=== PATIENT | female | born 1930 | race Caucasian/White ===

== ENCOUNTER → 2017-03-20 | Outpatient (CLI) | payer MEDICARE, OTHER ==
[~2017-03-20] MED LIST: DENOSUMAB 60 MG/ML 1 ML SYRINGE SQ ONE
[2017-03-20 13:53] VITALS: BP 149/73; PULSE 68; RESP 20; TEMP 97.1
== END ==
LOC: PROCWHC3 13:11
PROVIDERS: ATTEND Family Medicine
DX: M81.0 Age-related osteoporosis without current pathological fracture (principal)
CPT/HCPCS: 96372; J0897

== ENCOUNTER → 2017-03-30 | Outpatient (CLI) | payer MEDICARE, OTHER ==
--- NOTE | 2017-04-02 08:08 | MM ---
Reason for exam: screening (asymptomatic). Last mammogram was performed 1 year ago. History: Patient is postmenopausal and has history of endometrial cancer at age 71. Family history of breast cancer in maternal aunt at age 70. Benign stereotactic core biopsy of the left breast, March 31, 2005. 2 excisional biopsies of the left breast. 4 excisional biopsies of the right breast. Physical Findings: A clinical breast exam by your physician is recommended on an annual basis and results should be correlated with mammographic findings. MG 3D Screening Mammo W/Cad Bilateral CC and MLO view(s) were taken. Prior study comparison: March 29, 2016, bilateral MG 3d screening mammo w/cad. March 30, 2015, left breast MG work up mamm w CAD LT. There are scattered fibroglandular densities. Finding: There are typically benign calcifications. Previous mammotome biopsy in the left breast. No significant changes in finding since March 29, 2016 and March 30, 2015. ASSESSMENT: Benign, BI-RAD 2 RECOMMENDATION: Routine screening mammogram of both breasts in 1 year.
== END | disposition home or self-care (01) ==
LOC: RADMAMWWP 11:28
PROVIDERS: ATTEND Obstetrics & Gynecology
DX: Z12.31 Encounter for screening mammogram for malignant neoplasm of breast (principal)
CPT/HCPCS: 77063; G0202

== ENCOUNTER → 2017-08-01 | Outpatient (CLI) | payer MEDICARE, OTHER ==
--- NOTE | 2017-08-01 16:10 | US ---
EXAMINATION TYPE: US pelvic complete DATE OF EXAM: 08/01/2017 COMPARISON: NONE CLINICAL HISTORY: 86-year-old female R10.2 Pelvic Pain. Elderly pt that states LLQ pain x 6 weeks, hy sterectomy 15 yrs ago due to uterine CA TECHNIQUE: Transabdominal (TA), pt stated her bladder felt very full and opted out of TV at this papito e FINDINGS: Uterus: Surgically absent Unable to visualize either ovary. No evident adnexal abnormality or cul-de-sac free fluid. IMPRESSION: Status post hysterectomy. Neither ovary could be visualized. No pelvic free fluid or evident adnexal abnormality.
== END | disposition home or self-care (01) ==
LOC: RADUSWWP 15:14
PROVIDERS: ATTEND Family Medicine
DX: R10.2 Pelvic and perineal pain (principal); Z90.710 Acquired absence of both cervix and uterus
CPT/HCPCS: 76857

== ENCOUNTER → 2017-08-28 | Outpatient (CLI) | payer MEDICARE, OTHER ==
--- NOTE | 2017-08-29 07:10 | US ---
EXAMINATION TYPE: US kidneys/renal and bladder DATE OF EXAM: 08/28/2017 COMPARISON: 03/17/2014 CLINICAL HISTORY: R10.84 GENERALIZED ABD PAIN. EXAM MEASUREMENTS: Right Kidney: 9.6 x 4.1 x 4.6 cm Left Kidney: 9.5 x 4.6 x 4.7 cm Right Kidney: cortical thinning Left Kidney:cortical thinning Bladder: located very low in the pelvis very limited visualization There is no evidence for hydronephrosis at this point in time. No nephrolithiasis is seen. No fátima s are identified. IMPRESSION: Mild bilateral cortical renal atrophy, as seen on the prior exam of 2013, no evidence of hydronephros is or nephrolithiasis.
== END | disposition home or self-care (01) ==
LOC: RADUSWWP 15:27
PROVIDERS: ATTEND Urology
DX: N26.1 Atrophy of kidney (terminal) (principal); R10.84 Generalized abdominal pain
CPT/HCPCS: 76770

== ENCOUNTER → 2018-02-21 | Outpatient (CLI) | payer MEDICARE, OTHER ==
[2018-02-21 09:06] VITALS: BP 148/70; PULSE 70; RESP 18; TEMP 97.8
== END | disposition home or self-care (01) ==
LOC: PROCWHC3 08:48
PROVIDERS: ATTEND Family Medicine
DX: M81.0 Age-related osteoporosis without current pathological fracture (principal)
CPT/HCPCS: 96372; J0897

== ENCOUNTER 2018-03-26 19:19 | Inpatient (IN) | payer MEDICARE, OTHER ==
[2018-03-26] MEDS ORDERED: SODIUM CHLORIDE 0.9% 1,000 ML IV STA (19:39)
--- NOTE | 2018-03-26 19:42 | ED ---
General Adult HPI - General Chief complaint: Weakness Stated complaint: abnormal heart rate Time Seen by Provider: 03/26/18 19:22 Source: patient, EMS, RN notes reviewed, old records reviewed Mode of arrival: EMS Limitations: no limitations - History of Present Illness Initial comments: This is an 79-year-old female the ER for evaluation of abnormal outpatient testing. Patient was seen by family doctor and sent to ER for evaluation. A she does have significant medical history of high blood pressure. She is presenting medical medications. Patient coming in the ER today for evaluation of not feeling well feeling well times one week. She was decreased appetite positive nausea no vomiting no diarrhea. No fevers or cough or congestion. Currently no pain. Patient was found to have abnormal EKG an outpatient basis and sent to ER for evaluation - Related Data Home Medications Medication Instructions Recorded Confirmed Ascorbic Acid [Vitamin C] 500 mg PO DAILY 03/20/17 03/26/18 Aspirin [Adult Low Dose Aspirin EC] 81 mg PO DAILY 03/20/17 03/26/18 Astelin 1 spray EA NOSTRIL DAILY PRN 03/20/17 03/26/18 Calcium Carbonate [Calcium] 600 mg PO DAILY 03/20/17 03/26/18 Celecoxib [CeleBREX] 200 mg PO DAILY 03/20/17 03/26/18 Diphenox-Atrop 2.5-0.025 mg 1 tab PO DAILY PRN 03/20/17 03/26/18 [Lomotil] Fluticasone Nasal [place] [Flonase 1 spray EA NOSTRIL DAILY 03/20/17 03/26/18 Nasal [place]] Hydrochlorothiazide [Hydrodiuril] 12.5 mg PO DAILY 03/20/17 03/26/18 Multivit-Min/FA/Lycopen/Lutein 1 tab PO DAILY 03/20/17 03/26/18 [Centrum Silver Tablet] RX: Ranitidine HCl 300 mg PO DAILY 03/20/17 03/26/18 Valsartan [Diovan] 320 mg PO DAILY 03/20/17 03/26/18 Rosuvastatin Calcium [Crestor] 5 mg PO DAILY 02/21/18 03/26/18 Cholecalciferol [Vitamin D3] 2,000 unit PO DAILY 03/26/18 03/26/18 Denosumab [Prolia] 60 mg SQ Q180D 03/26/18 03/26/18 Diclofenac Sodium Gel [Voltaren 2 gm TOPICAL BID PRN 03/26/18 03/26/18 Gel] HYDROcodone/APAP 10-325MG [[place] 1 tab PO TID PRN 03/26/18 03/26/18 10-325] Nystatin [Nystop] 1 applic TOPICAL BID 03/26/18 03/26/18 Nystatin/Triamcin 1 applicate TOPICAL BID 03/26/18 03/26/18 [Nystatin-Triamcinolone Cream] RX: Vitamin B Complex 1 cap PO DAILY 03/26/18 03/26/18 Triamcinolone Acetonide [Triderm] 1 applic TOPICAL BID PRN 03/26/18 03/26/18 Allergies Allergy/AdvReac Type Severity Reaction Status Date / Time Penicillins Allergy Rash/Hives Verified 03/26/18 19:40 lisinopril AdvReac Diarrhea Verified 03/26/18 19:41 bandaids Allergy Swelling Uncoded 03/26/18 19:29 Review of Systems ROS Statement: Those systems with pertinent positive or pertinent negative responses have been documented in the HPI. ROS Other: All systems not noted in ROS Statement are negative. Past Medical History Past Medical History: Heart Failure, GERD/Reflux, Hyperlipidemia, Hypertension Additional Past Medical History / Comment(s): anemia History of Any Multi-Drug Resistant Organisms: None Reported Past Surgical History: Ear Surgery, Hysterectomy, Joint Replacement, Tonsillectomy Additional Past Surgical History / Comment(s): Right knee replacement, cataract surgery, Past Psychological History: No Psychological Hx Reported Smoking Status: Never smoker Past Alcohol Use History: None Reported Past Drug Use History: None Reported General Exam Limitations: no limitations General appearance: alert, in no apparent distress Head exam: Present: atraumatic, normocephalic, normal inspection Eye exam: Present: normal appearance, PERRL, EOMI. Absent: scleral icterus, conjunctival injection, periorbital swelling ENT exam: Present: normal exam, mucous membranes moist Neck exam: Present: normal inspection. Absent: tenderness, meningismus, lymphadenopathy Respiratory exam: Present: normal lung sounds bilaterally. Absent: respiratory distress, wheezes, rales, rhonchi, stridor Cardiovascular Exam: Present: bradycardia, normal heart sounds. Absent: systolic murmur, diastolic murmur, rubs, gallop, clicks GI/Abdominal exam: Present: soft, normal bowel sounds. Absent: distended, tenderness, guarding, rebound, rigid Extremities exam: Present: normal inspection, full ROM, normal capillary refill. Absent: tenderness, pedal edema, joint swelling, calf tenderness Back exam: Present: normal inspection Neurological exam: Present: alert, oriented X3, CN II-XII intact Psychiatric exam: Present: normal affect, normal mood Skin exam: Present: warm, dry, intact, normal color. Absent: rash Course Vital Signs 03/26/18 03/26/18 03/26/18 19:22 19:41 20:08 Temperature 97.1 F L Pulse Rate 35 L 33 L Respiratory 18 18 Rate Blood Pressure 177/92 228/90 O2 Sat by Pulse 97 98 Oximetry 03/26/18 20:40 Temperature Pulse Rate 32 L Respiratory 18 Rate Blood Pressure 216/78 O2 Sat by Pulse 98 Oximetry - Reevaluation(s) Reevaluation #1: 03/26/18 21:20 Patient is no pain no shortness of breath not syncopal Reevaluation #2: 03/26/18 21:21 Medical record is reviewed, did speak with cardiology regarding patient's EKG findings EKG Findings - EKG Comments: EKG Findings:: EKG shows sinus bradycardia at 35, MN 180, QRS 120, QTC 377 Medical Decision Making - Medical Decision Making 87 female the ER for evaluation of weakness 1 week. Bradycardia profound, multiple x-ray abnormalities and dehydration, patient be admitted for cardiac evaluation and treatment, continue telemetry and blood pressure control - Lab Data Result diagrams: 03/26/18 19:36 03/26/18 19:36 Lab Results 03/26/18 03/26/18 03/26/18 Range/Units 19:36 19:36 19:36 WBC 7.1 (3.8-10.6) k/uL RBC 3.74 L (3.80-5.40) m/uL Hgb 12.3 (11.4-16.0) gm/dL Hct 37.5 (34.0-46.0) % MCV 100.2 H (80.0-100.0) fL MCH 32.8 (25.0-35.0) pg MCHC 32.7 (31.0-37.0) g/dL RDW 12.1 (11.5-15.5) % Plt Count 234 (150-450) k/uL Neutrophils % 61 % Lymphocytes % 27 % Monocytes % 6 % Eosinophils % 4 % Basophils % 0 % Neutrophils # 4.3 (1.3-7.7) k/uL Lymphocytes # 1.9 (1.0-4.8) k/uL Monocytes # 0.4 (0-1.0) k/uL Eosinophils # 0.3 (0-0.7) k/uL Basophils # 0.0 (0-0.2) k/uL PT (9.0-12.0) sec INR (<1.2) APTT (22.0-30.0) sec Sodium 143 (137-145) mmol/L Potassium 5.9 H (3.5-5.1) mmol/L Chloride 111 H (98-107) mmol/L Carbon Dioxide 19 L (22-30) mmol/L Anion Gap 13 mmol/L BUN 59 H (7-17) mg/dL Creatinine 1.20 H (0.52-1.04) mg/dL Est GFR (CKD-EPI)AfAm 47 (>60 ml/min/1.73 sqM) Est GFR (CKD-EPI)NonAf 41 (>60 ml/min/1.73 sqM) Glucose 111 H (74-99) mg/dL Plasma Lactic Acid Bubba (0.7-2.0) mmol/L Calcium 9.4 (8.4-10.2) mg/dL Phosphorus 4.0 (2.5-4.5) mg/dL Magnesium 2.4 H (1.6-2.3) mg/dL Total Bilirubin 0.3 (0.2-1.3) mg/dL AST 29 (14-36) U/L ALT 35 (9-52) U/L Alkaline Phosphatase 50 (38-126) U/L Total Creatine Kinase 29 L (30-135) U/L CK-MB (CK-2) 0.8 (0.0-2.4) ng/mL CK-MB (CK-2) Rel Index 2.8 Troponin I 0.039 H* (0.000-0.034) ng/mL Total Protein 6.3 (6.3-8.2) g/dL Albumin 4.0 (3.5-5.0) g/dL TSH 9.280 H (0.465-4.680) mIU/L Urine Color Urine Appearance (Clear) Urine pH (5.0-8.0) Ur Specific [place] (1.001-1.035) Urine Protein (Negative) Urine Glucose (UA) (Negative) Urine Ketones (Negative) Urine Blood (Negative) Urine Nitrite (Negative) Urine Bilirubin (Negative) Urine Urobilinogen (<2.0) mg/dL Ur Leukocyte Esterase (Negative) Urine RBC (0-5) /hpf Urine WBC (0-5) /hpf Urine WBC Clumps (None) /hpf Ur Squamous Epith Cells (0-4) /hpf Hyaline Casts (0-2) /lpf 03/26/18 03/26/18 03/26/18 Range/Units 19:36 19:36 19:51 WBC (3.8-10.6) k/uL RBC (3.80-5.40) m/uL Hgb (11.4-16.0) gm/dL Hct (34.0-46.0) % MCV (80.0-100.0) fL MCH (25.0-35.0) pg MCHC (31.0-37.0) g/dL RDW (11.5-15.5) % Plt Count (150-450) k/uL Neutrophils % % Lymphocytes % % Monocytes % % Eosinophils % % Basophils % % Neutrophils # (1.3-7.7) k/uL Lymphocytes # (1.0-4.8) k/uL Monocytes # (0-1.0) k/uL Eosinophils # (0-0.7) k/uL Basophils # (0-0.2) k/uL PT 9.4 (9.0-12.0) sec INR 0.9 (<1.2) APTT 22.8 (22.0-30.0) sec Sodium (137-145) mmol/L Potassium (3.5-5.1) mmol/L Chloride (98-107) mmol/L Carbon Dioxide (22-30) mmol/L Anion Gap mmol/L BUN (7-17) mg/dL Creatinine (0.52-1.04) mg/dL Est GFR (CKD-EPI)AfAm (>60 ml/min/1.73 sqM) Est GFR (CKD-EPI)NonAf (>60 ml/min/1.73 sqM) Glucose (74-99) mg/dL Plasma Lactic Acid Bubba 0.7 (0.7-2.0) mmol/L Calcium (8.4-10.2) mg/dL Phosphorus (2.5-4.5) mg/dL Magnesium (1.6-2.3) mg/dL Total Bilirubin (0.2-1.3) mg/dL AST (14-36) U/L ALT (9-52) U/L Alkaline Phosphatase (38-126) U/L Total Creatine Kinase (30-135) U/L CK-MB (CK-2) (0.0-2.4) ng/mL CK-MB (CK-2) Rel Index Troponin I (0.000-0.034) ng/mL Total Protein (6.3-8.2) g/dL Albumin (3.5-5.0) g/dL TSH (0.465-4.680) mIU/L Urine Color Light Yellow Urine Appearance Cloudy H (Clear) Urine pH 5.0 (5.0-8.0) Ur Specific [place] 1.008 (1.001-1.035) Urine Protein Trace H (Negative) Urine Glucose (UA) Negative (Negative) Urine Ketones Negative (Negative) Urine Blood Trace H (Negative) Urine Nitrite Negative (Negative) Urine Bilirubin Negative (Negative) Urine Urobilinogen <2.0 (<2.0) mg/dL Ur Leukocyte Esterase Moderate H (Negative) Urine RBC 2 (0-5) /hpf Urine WBC 34 H (0-5) /hpf Urine WBC Clumps Few H (None) /hpf Ur Squamous Epith Cells <1 (0-4) /hpf Hyaline Casts 1 (0-2) /lpf Critical Care Time Critical Care Time: Yes Total Critical Care Time: 31 Disposition Clinical Impression: Bradycardia, Hypertensive urgency, Dehydration, Acute renal failure Disposition: ADMITTED IP TO THIS HOSP Condition: Serious Is patient prescribed a controlled substance at d/c from ED?: No Referrals: Andrzej Hutson MD [Primary Care Provider] - 1-2 days
[2018-03-26 19:51] LABS: Basophils % (A) 0 %; Eosinophils # (A) 0.3 k/uL (0-0.7); Eosinophils % (A) 4 %; HCT 37.5 % (34.0-46.0); HGB 12.3 gm/dL (11.4-16.0); Lymphocytes # (A) 1.9 k/uL (1.0-4.8); Lymphocytes % (A) 27 %; MCH 32.8 pg (25.0-35.0); MCHC 32.7 g/dL (31.0-37.0); MCV 100.2 fL (80.0-100.0); Mean Platelet Volume 7.3; Monocytes # (A) 0.4 k/uL (0-1.0); Monocytes % (A) 6 %; Neutrophils # (A) 4.3 k/uL (1.3-7.7); Neutrophils % (A) 61 %; Platelet Count 234 k/uL (150-450); RBC 3.74 m/uL (3.80-5.40); RDW 12.1 % (11.5-15.5); WBC 7.1 k/uL (3.8-10.6)
[2018-03-26 20:02] LABS: Appearance,Urine Cloudy (Clear); Bilirubin,Urine Negative (Negative); Blood,Urine Trace (Negative); Color,Urine Light Yellow; Glucose,Urine (UA) Negative (Negative); Hyaline Casts,Urine 1 /lpf (0-2); Ketones,Urine Negative (Negative); Leukocyte Esterase,Urine Moderate (Negative); Nitrite,Urine Negative (Negative); Protein,Urine Trace (Negative); RBC,Urine 2 /hpf (0-5); Specific Gravity,Urine 1.008 (1.001-1.035); Squamous Epithelial Cell,Urine <1 /hpf (0-4); Urobilinogen,Urine <2.0 mg/dL (<2.0); WBC,Urine 34 /hpf (0-5)
[2018-03-26 20:12] LABS: Calcium 9.4 mg/dL (8.4-10.2); Magnesium 2.4 mg/dL (1.6-2.3); Potassium 5.9 mmol/L (3.5-5.1); Total Bilirubin 0.3 mg/dL (0.2-1.3); Total Protein 6.3 g/dL (6.3-8.2)
[2018-03-26 20:13] LABS: INR 0.9 (<1.2); Prothrombin Time 9.4 sec (9.0-12.0)
[2018-03-26 20:14] LABS: Partial Thromboplastin Time 22.8 sec (22.0-30.0)
[2018-03-26 20:27] LABS: Creatine Kinase MB 0.8 ng/mL (0.0-2.4)
[2018-03-26 20:31] LABS: Troponin I 0.039 ng/mL (0.000-0.034)
[2018-03-26] MEDS ORDERED: hydrALAZINE HCL 20 MG/ML 1 ML VIAL IVP STA ×2 (20:31→21:59)
[2018-03-26] MEDS ORDERED: SODIUM CHLORIDE 0.9% 500 ML IV STA (20:35)
[2018-03-26] MEDS ORDERED: cefTRIAXone IN SWFI 1,000 MG/10 ML SYRINGE IVP STA (20:38)
[2018-03-26] MEDS ORDERED: NITROGLYCERIN SL TABS 0.4 MG TAB SUBLINGUAL PRN (21:18)
[2018-03-26] MEDS ORDERED: ASPIRIN 81 MG PO STA (21:18)
[2018-03-26 23:45] VITALS: BMI 31.7
[2018-03-27 02:14] LABS: Creatine Kinase MB 0.9 ng/mL (0.0-2.4)
[2018-03-27 02:15] LABS: Troponin I 0.092 ng/mL (0.000-0.034)
[2018-03-27] MEDS ORDERED: DICLOFENAC SODIUM GEL 100 GM TUBE TOPICAL PRN (05:45)
[2018-03-27] MEDS ORDERED: DENOSUMAB 60 MG/ML 1 ML SYRINGE SQ SCH (05:45)
[2018-03-27] MEDS ORDERED: HYDROcodone/APAP 10-325MG 1 EACH TAB PO PRN (05:45)
[2018-03-27] MEDS ORDERED: DIPHENOX-ATROP 2.5-0.025 MG 1 EACH TAB PO PRN (05:45)
[2018-03-27] MEDS ORDERED: TRIAMCINOLONE 0.1% CREAM 80 GM TUBE TOPICAL PRN (05:45)
[2018-03-27] MEDS: LEVOTHYROXINE 50 MCG TAB PO SCH (08:42)
[2018-03-27] MEDS: FAMOTIDINE 20 MG TAB PO SCH (08:43)
[2018-03-27] MEDS: ATORVASTATIN 10 MG TAB PO SCH (08:43)
[2018-03-27] MEDS: HYDROCHLOROTHIAZIDE 12.5 MG CAP PO SCH (08:44)
--- NOTE | 2018-03-27 08:46 | XR ---
EXAMINATION TYPE: XR chest 1V portable DATE OF EXAM: 03/27/2018 COMPARISON: NONE HISTORY: Preoperative evaluation TECHNIQUE: Single frontal view of the chest is obtained. FINDINGS: Cardiomediastinal silhouette is upper limits of normal. Diffuse interstitial prominence ma y be chronic. No focal consolidation is seen. Probable linear parenchymal scarring is seen within the right midlung. There is slight right hemidiaphragm elevation and right hemithorax volume loss. There is generalized demineralization of the osseous structures and mild glenohumeral arthropathy on the r ight, moderate on the left. IMPRESSION: Diffuse interstitial prominence could be chronic, however no prior examinations are seen . Less likely this could relate to mild interstitial edema or atypical pneumonitis.
[2018-03-27 08:56] LABS: Creatine Kinase MB 0.8 ng/mL (0.0-2.4)
[2018-03-27 08:58] LABS: Cholesterol 108 mg/dL (<200); HDL Cholesterol 41 mg/dL (40-60); LDL Cholesterol,Calculated 49 mg/dL (0-99); Triglycerides 88 mg/dL (<150)
[2018-03-27] MEDS ORDERED: ASPIRIN 325 MG TAB PO SCH (09:00)
[2018-03-27] MEDS ORDERED: VALSARTAN 160 MG TAB PO SCH (09:00)
[2018-03-27] MEDS ORDERED: hydrALAZINE HCL 25 MG TAB PO SCH (09:00)
[2018-03-27] MEDS ORDERED: LEVOTHYROXINE 50 MCG TAB PO SCH (09:00)
[2018-03-27] MEDS ORDERED: CALCIUM CARBONATE 500 MG CHEWABLE PO SCH (09:00)
[2018-03-27] MEDS ORDERED: CHOLECALCIFEROL 1,000 UNIT TAB PO SCH (09:00)
[2018-03-27 09:01] LABS: Troponin I 0.103 ng/mL (0.000-0.034)
[2018-03-27] MEDS: AZELASTINE 137MCG/SPRAY EA NOSTRIL PRN (09:01)
[2018-03-27] MEDS: FLUTICASONE 50MCG/SPRAY NASAL 16GM EA NOSTRIL SCH (09:01)
[2018-03-27] MEDS: hydrALAZINE HCL 25 MG TAB PO SCH ×3 (09:58→20:38)
[2018-03-27] MEDS: ASPIRIN 81 MG PO SCH (09:59)
[2018-03-27] MEDS: NYSTATIN 100,000UNIT/GM CREAM 30 GM TUBE TOPICAL SCH ×2 (09:59→20:45)
[2018-03-27] MEDS: NYSTATIN 100,000 UNIT/GM POWD 15 GM TOPICAL SCH ×2 (09:59→20:45)
[2018-03-27] MEDS ORDERED: FUROSEMIDE 10 MG/ML 2 ML VIAL IV STA (10:22)
[2018-03-27] MEDS ORDERED: FUROSEMIDE 10 MG/ML 4 ML VIAL ONE (10:24)
[2018-03-27] MEDS: ONDANSETRON 4 MG/2 ML VIAL IVP PRN ×3 (10:34→23:25)
[2018-03-27 11:32] LABS: Calcium 8.4 mg/dL (8.4-10.2); Potassium 5.7 mmol/L (3.5-5.1)
[2018-03-27] MEDS: VIT A,C & E-LUTEIN-MINERALS 1 EACH TAB PO SCH (11:39)
[2018-03-27] MEDS: B COMPLEX-VIT C-VIT E-ZINC 1 EACH TAB PO SCH (11:39)
[2018-03-27] MEDS: ASCORBIC ACID 500 MG TAB PO SCH (11:39)
[2018-03-27] MEDS ORDERED: SODIUM POLYSTYRENE SULFONATE 15 GM/60 ML BOTTLE PO STA (13:17)
--- NOTE | 2018-03-27 14:33 | ECHOF ---
Referral Reason:second degree heart block MEASUREMENTS -------- HEIGHT: 152.4 cm WEIGHT: 75.7 kg BP: 133/56 IVSd: 1.3 cm (0.6 - 1.1) LVIDd: 4.3 cm (3.9 - 5.3) LVPWd: 1.9 cm (0.6 - 1.1) IVSs: 1.7 cm LVIDs: 3.3 cm LVPWs: 1.5 cm LAESV Index (A-L): 46.40 ml/m Ao Diam: 2.5 cm (2.0 - 3.7) LA Diam: 4.5 cm (2.7 - 3.8) MV EXCURSION: 14.577 mm (> 18.000) MV EF SLOPE: 64 mm/s (70 - 150) EPSS: 0.2 cm MV E Martell: 1.68 m/s MV DecT: 260 ms MV A Martell: 1.74 m/s MV E/A Ratio: 0.97 AR PHT: 628 ms RAP: 5.00 mmHg RVSP: 56.28 mmHg FINDINGS -------- Resting bradycardia (HR<60bpm). This was a technically adequate study. The left ventricular size is normal. There is mild concentric left ventricular hypertrophy. Overa ll left ventricular systolic function is normal with, an EF between 55 - 60 %. The right ventricle is normal in size. LA is severely dilated >40 ml/m2 The right atrial size is normal. There is mild aortic valve sclerosis. There is mild aortic regurgitation. Mild mitral annular calcification present. Mild mitral regurgitation is present. The peak and me an MV gradients are 16.72mmHg 5.32mmHg as measured by doppler. Mild mitral stenosis. Mild tricuspid regurgitation present. There is moderate pulmonary hypertension. The right ventric ular systolic pressure, as measured by Doppler, is 56.28mmHg. The pulmonic valve was not well visualized. There is no pulmonic regurgitation present. The aortic root size is normal. There is no pericardial effusion. CONCLUSIONS -------- 1. Resting bradycardia (HR<60bpm). 2. This was a technically adequate study. 3. The left ventricular size is normal. 4. There is mild concentric left ventricular hypertrophy. 5. Overall left ventricular systolic function is normal with, an EF between 55 - 60 %. 6. LA is severely dilated >40 ml/m2 7. There is mild aortic valve sclerosis. 8. There is mild aortic regurgitation. 9. Mild mitral annular calcification present. 10. Mild mitral regurgitation is present. 11. The peak and mean MV gradients are 16.72mmHg 5.32mmHg as measured by doppler. 12. Mild mitral stenosis. 13. Mild tricuspid regurgitation present. 14. There is moderate pulmonary hypertension. 15. There is no pulmonic regurgitation present. 16. The aortic root size is normal. 17. There is no pericardial effusion. NUCLEAR MEDICAL TECHNOLOGIST: Brittny Sales RDCS
[2018-03-27] MEDS ORDERED: SODIUM BICARB 8.4% 50 ML SYR (1 MEQ/ML) IV STA (14:56)
[2018-03-27] MEDS ORDERED: DEXTROSE 50%-WATER 50 ML SYRINGE IVP STA (15:00)
[2018-03-27] MEDS ORDERED: ACETAMINOPHEN TAB 325 MG TAB PO PRN (15:01)
[2018-03-27] MEDS ORDERED: LACTULOSE 20 GM/30 ML CUP PO PRN (15:01)
[2018-03-27] MEDS ORDERED: MAGNESIUM HYDROXIDE 2,400 MG/10 ML CUP PO PRN (15:01)
[2018-03-27] MEDS ORDERED: SODIUM BICARB 8.4% 50 ML VIAL (1 MEQ/ML) IV ONE (15:01)
[2018-03-27] MEDS ORDERED: ALPRAZolam 0.25 MG TAB PO PRN (15:01)
[2018-03-27] MEDS ORDERED: INSULIN REGULAR 100 UNIT/ML VIAL IV STA (15:04)
[2018-03-27] MEDS: SODIUM CHLORIDE 0.9% 1,000 ML IV SCH (15:06)
[2018-03-27] MEDS: SODIUM BICARBONATE TAB 650 MG TAB PO SCH ×2 (15:43→20:38)
[2018-03-27] MEDS ORDERED: CALCIUM CHLORIDE 1,000 MG in SODIUM CHLORIDE 0.9% 100 ML IVPB ONE (16:00)
--- NOTE | 2018-03-27 17:07 | HP ---
HISTORY AND PHYSICAL DATE OF ADMISSION: 03/26/2018 DATE OF SERVICE: 03/27/2018 PRESENTING COMPLAINT: Tired, rundown. HISTORY OF PRESENTING COMPLAINT: This is an 87-year-old patient of Dr. Hutson whose chronic stable medical conditions include GERD, hypertension, hyperlipidemia. The patient is rather active; in fact, played some golf over 10 days ago. The patient has been feeling totally rundown for about a week, what she describes as feeling "blah." She had some nausea. No fever or chills. Decreased appetite. No change in her bowel habits. Some shortness of breath. She went to see her family doctor and then came down here next feeling totally exhausted and rundown. She denies any other previous cardiac history. Patient's daughter is present with her. REVIEW OF SYSTEMS: CONSTITUTIONAL: Weak, tired, decreased appetite. HEENT: None. RESPIRATORY: Short of breath. CARDIOVASCULAR: No chest pain. GASTROINTESTINAL: Heartburn. GENITOURINARY: Urinary incontinence. DERMATOLOGICAL: None. HEMATOLOGICAL: None. LYMPHATICS: None. PSYCHIATRY: None. NEUROLOGICAL: Sleeps poorly. MUSCULOSKELETAL: Arthritic pain in the many joints. PAST MEDICAL HISTORY: 1. GERD. 2. Hyperlipidemia. 3. Hypertension. PAST SURGICAL HISTORY: 1. Ear surgery. 2. Hysterectomy. 3. Tonsillectomy. 4. Right knee replacement. 5. Cataract surgery. SOCIAL HISTORY: Does not smoke or drink alcohol. . FAMILY HISTORY: Reviewed; noncontributory to presentation. HOME MEDICATIONS: 1. Diovan 320 mg p.o. daily. 2. Triderm 1 application topically b.i.d. p.r.n. 3. Aspirin 81 mg p.o. daily. 4. Vitamin B complex 1 capsule p.o. daily. 5. [place] 10 one tablet p.o. t.i.d. p.r.n. 6. Lomotil 2.5 one tablet p.o. daily p.r.n. 7. Motrin Gel 2 grams topically b.i.d. p.r.n. 8. Vitamin D3 2000 units p.o. daily. 9. Astelin 1 spray each nostril daily p.r.n. 10.Crestor 5 mg p.o. daily. 11.Zantac 300 mg p.o. daily. 12.Prolia 60 mg every 180 days. 13.Vitamin C 500 mg p.o. daily. 14.Nystatin-triamcinolone 1 application topically b.i.d. 15.Nystatin 1 application topically b.i.d. 16.Hydrochlorothiazide 12.5 p.o. daily. 17.Flonase 1 spray each nostril daily. 18.Centrum 1 tablet p.o. daily. 19.Celebrex 200 mg p.o. daily. 20.Calcium 600 mg p.o. daily. ALLERGIES: 1. PENICILLIN. 2. LISINOPRIL. 3. BAND-AIDS. PHYSICAL EXAMINATION: VITAL SIGNS ON PRESENTATION: Temperature 97.1, pulse 35, respiration 18, blood pressure 177/92, pulse ox 97% on room air on presentation. GENERAL APPEARANCE: Well built; BMI 31.7. Sitting up, tired-appearing. EYES: Pupils equal. Conjunctivae normal. HEENT: External appearance of nose and ears normal. Oral cavity normal. NECK: JVD raised. Mass not palpable. RESPIRATORY: Effort increased. LUNGS: Decreased breath sounds. CARDIOVASCULAR: Heart sounds irregular. Minimal edema. ABDOMEN: Soft, nontender. Liver and spleen not palpable. LYMPHATIC: No lymph node palpable in neck or axillae. PSYCHIATRY: Alert, oriented x3. Mood and affect normal. NEUROLOGICAL: Pupils equal. Cranial nerves grossly intact. Power and sensation grossly intact. MUSCULOSKELETAL: Evidence of osteoarthritis, especially in the hands and knees. INVESTIGATIONS: White count 7.1, hemoglobin 12.3, platelets 234, potassium 5.9, bicarb 19, BUN 59, creatinine 1.20, troponin 0.039, 0.092, 0.1. TSH 9.2. UA positive for leukocyte esterase, WBC. Chest x-ray shows venous prominence. ASSESSMENT: 1. This is a patient who has been feeling weak, tired, rundown for about a week. Chest x-ray is compatible with some pulmonary edema in the setting of 2:1 heart block and bradycardia, which could be from severe hyperkalemia, and of course it could be from a conduction problem. Patient's troponins are also mildly elevated. 2. Severe hyperkalemia in the setting of renal failure, and patient is also taking Diovan. 3. Metabolic acidosis, probably from renal failure. 4. Obesity; body mass index 31.7. 5. Essential hypertension, uncontrolled. 6. Hyperlipidemia. 7. Gastroesophageal reflux disease. 8. Primary osteoarthritis in multiple joints, bilateral. 9. Chronic urinary stress incontinence. 10.Chronic insomnia, idiopathic. 11.Hypothyroidism with elevated TSH, but in acute setting it is unclear if patient is actually underreplaced. Will have to recheck the same. 12.CODE STATUS: DO NOT RESUSCITATE. PLAN: For the hyperkalemia we will stop patient's ARB. Patient will be given some insulin, dextrose, sodium bicarb and calcium chloride. Calcium gluconate is not available in the hospital. Patient will be also put on a low-potassium diet. Cardiology will be consulted. Given that patient has 2:1 block, patient may require a pacemaker. Care was discussed in detail with the patient and daughter. Questions were answered. Cardiology had given the patient some Lasix earlier. AGUSTO / TARI: [id number] /
--- NOTE | 2018-03-27 18:22 | CONS ---
CONSULTATION This is an 87-year-old elderly lady who lives part-time in [place] and summertime in [place]. She has been experiencing for the past a week or so generalized weakness, lack of energy, listlessness and nausea. She went to her doctor for outpatient testing, was seen and sent in because of a slow heart rate and a generalized feeling of weakness and listlessness. After arrival, she was found to have a heart rate in the 40s with a 2:1 block and underlying left bundle and I was asked to see her in this regard. The patient was also found to have hyperkalemia at a potassium of 5.9 initially. She appears to have some prerenal azotemia as well and may have been a bit dehydrated. Apparently in [place], she had a volume overload situation, according to the daughter. She is comfortable at the time of my evaluation, complains of some nausea. PAST MEDICAL HISTORY: Remarkable for history of congestive heart failure, diastolic probably, hyperlipidemia, hypertension, gastroesophageal reflux disease. She is status post tonsillectomy, joint replacement of the right knee arthroplasty, cataract surgery. ALLERGIES: Include LISINOPRIL and PENICILLIN. MEDICATIONS AT HOME: Include: 1. Vitamin supplements. 2. Aspirin 81 mg daily. 3. Celebrex for arthritis. 4. Flonase inhaler. 5. Hydrochlorothiazide 12.5 mg daily. 6. Ranitidine 300 mg daily. 7. Diovan 320 mg daily. 8. Crestor 5 mg daily. 9. Hydrocodone for pain and. 10.Some vitamin supplements. EKG revealed a sinus mechanism with a 2:1 block and a left bundle branch block with a rate of about 40 beats per minute. EXAMINATION: Blood pressure is 140/70, pulse rate is about 42 per minute. HEENT: Unremarkable. Fundus was not examined by me. Neck is supple. There is no JVD. I do not hear a carotid bruit. Heart reveals S1, S2 with a short systolic murmur at the base, preserved second heart sound. Lungs reveal diminished air entry. Abdomen is soft, distended, nontender. Lower extremities reveal diminished pulses. No edema. Central nervous system is grossly within normal limits. IMPRESSION: 1. 2:1 block with underlying left bundle with symptomatic bradycardia. 2. Hyperkalemia. 3. History of hypertension. 4. Hyperlipidemia. 5. History of hospitalization with diastolic heart failure apparently in [place]. RECOMMENDATION: I am recommending that we address the issue of hyperkalemia by giving her Kayexalate and also hydrate her cautiously. I am also recommending that we check thyroid function test and apparently TSH is elevated. We will start her on some Synthroid 50 mcg daily, correct the potassium, redo the EKG and if the heart rate is still low, she will need a pacemaker. I discussed with the patient and daughter the rationale for pacemaker if her heart rate remains low with a 2:1 heart block and she is asymptomatic after her potassium is corrected. Rationale, risks, benefits, options complications were explained to the patient and family. They understand all details and tomorrow I will make 1 more phone call after I check her potassium level and then make further recommendations. I discussed my thoughts in detail with the patient and family. Thank you very much for the consult. AGUSTO / TARI: [id number] /
[2018-03-27 19:01] LABS: Calcium 9.3 mg/dL (8.4-10.2); Potassium 4.9 mmol/L (3.5-5.1)
[2018-03-27] MEDS ORDERED: MELATONIN 3 MG TABLET PO PRN (21:00)
[2018-03-28] MEDS ORDERED: CLINDAMYCIN 900 MG in DEXTROSE 5% IN WATER 50 ML IVPB ONE ×2 (06:00)
[2018-03-28] MEDS ORDERED: CLINDAMYCIN 600 MG in SODIUM CHLORIDE 0.9% IRRIGATIO 250 ML IRRIGATION ONE (06:00)
[2018-03-28] MEDS: ATORVASTATIN 10 MG TAB PO SCH (06:11)
[2018-03-28] MEDS: hydrALAZINE HCL 25 MG TAB PO SCH ×3 (06:11→21:18)
[2018-03-28] MEDS: ASPIRIN 81 MG PO SCH (06:11)
[2018-03-28] MEDS: SODIUM BICARBONATE TAB 650 MG TAB PO SCH ×3 (06:11→21:18)
[2018-03-28] MEDS: LEVOTHYROXINE 50 MCG TAB PO SCH (06:11)
[2018-03-28] MEDS: FAMOTIDINE 20 MG TAB PO SCH (06:11)
[2018-03-28] MEDS: FLUTICASONE 50MCG/SPRAY NASAL 16GM EA NOSTRIL SCH (06:12)
[2018-03-28] MEDS: SODIUM CHLORIDE 0.9% 1,000 ML IV SCH ×6 (06:14→23:47)
[2018-03-28] MEDS: ONDANSETRON 4 MG/2 ML VIAL IVP PRN (06:16)
[2018-03-28 06:23] LABS: Glucose,Whole Blood 106 mg/dL (75-99)
[2018-03-28 06:41] LABS: Calcium 8.6 mg/dL (8.4-10.2); Potassium 4.9 mmol/L (3.5-5.1)
[2018-03-28 07:53] LABS: T4, Free (Free Thyroxine) 1.07 ng/dL (0.78-2.19)
[2018-03-28] MEDS: NYSTATIN 100,000 UNIT/GM POWD 15 GM TOPICAL SCH ×2 (08:50→21:18)
[2018-03-28] MEDS: NYSTATIN 100,000UNIT/GM CREAM 30 GM TUBE TOPICAL SCH ×2 (08:51→21:18)
[2018-03-28] MEDS ORDERED: diphenhydrAMINE 50 MG/ML 1 ML VIAL ONE (09:34)
[2018-03-28] MEDS ORDERED: MIDAZOLAM 2 MG/2 ML VIAL ONE (09:34)
[2018-03-28] MEDS ORDERED: IOPAMIDOL-250 50ML BTL IV ONE (09:44)
[2018-03-28] MEDS ORDERED: MIDAZOLAM 2 MG/2 ML VIAL IVP ONE (09:47)
[2018-03-28] MEDS ORDERED: LIDOCAINE 2% INJ 20 MG/ML SQ ONE (09:47)
[2018-03-28] MEDS ORDERED: amLODIPine 5 MG TAB PO STA ×2 (09:53→11:36)
[2018-03-28] MEDS ORDERED: amLODIPine 5 MG TAB PO ONE (10:05)
[2018-03-28] MEDS ORDERED: SODIUM CHLORIDE 0.9% 1,000 ML IV ONE (10:06)
[2018-03-28] MEDS: MORPHINE SULFATE 5 MG/ML SYRINGE IVP ONE ×2 (10:38→10:57)
--- NOTE | 2018-03-28 11:08 | PN ---
PROGRESS NOTE Mrs. Andrea is doing well today. She remains in 2:1 block. Potassium level is 4.9. She was advised to have a temporary and then permanent pacemaker. Risks, benefits, options, rationale explained to the patient and I also talked to her daughter at length. MMDEBORAHL / AGN: [id number] /
[2018-03-28] MEDS ORDERED: ACETAMINOPHEN TAB 325 MG TAB PO PRN ×2 (11:39→11:49)
--- NOTE | 2018-03-28 12:32 | CE ---
CARDIAC ELECTROPHYSIOLOGY REPORT DATE OF SERVICE: 03/28/2018. PROCEDURE: 1. Temporary transvenous pacemaker from the right femoral approach. 2. Dual-chamber permanent pacemaker in the left infraclavicular area. PERFORMED BY: Dr. Adwoa Broderick. Moderate conscious sedation time was 108 minutes. The patient was given a combination of Versed and morphine. CLINICAL INFORMATION: Mrs. Elisa Andrea is an 87-year-old lady who came into the hospital with weakness, fatigue and dizziness and near syncope, had a 2:1 heart block with underlying left bundle. She was slightly hyperkalemic and even after correction, she continued to have bradycardia symptomatic with 2:1 block and left bundle branch block pattern. She was advised a dual-chamber pacemaker after due discussion with the patient and daughter. PROCEDURE NOTE: 1. Under local anesthesia and strict aseptic precautions, a 6-Namibian introducer was placed in the right femoral vein. Using a 5-Namibian balloon tipped pacemaker, I advanced and positioned it under fluoroscopic guidance to the right ventricular apex. Good threshold was obtained. This was used as a backup pacemaker. Patient was kept at a backup rate of 35 and of 5.0. I then unscrubbed and rescrubbed and went in to perform the permanent pacemaker procedure. 2. Under local anesthesia and strict aseptic precautions using fluoroscopic guidance after a venogram, I gained access into the left axillary vein. A micropuncture needle technique was used. Subsequently under strict aseptic precautions and local anesthesia, a linear incision was made medial and parallel to the left deltopectoral groove of about 3-1/2 inches. A subfascial pocket was made using blunt dissection. I then under fluoroscopic guidance obtained another access point into the left axillary vein under fluoroscopic guidance and a micropuncture needle technique was used. Two wires were left in the axillary vein. A 6-Namibian introducer was placed in the lateral incision point. Under fluoroscopic guidance, a ventricular pacemaker lead was advanced and positioned and after multiple attempts. A good septal location was achieved. Good threshold and sensitivities were obtained. The lead was then secured to the underlying muscle with an 0 silk. I then advanced the atrial lead under fluoroscopic guidance and positioned it in the right atrium. Good thresholds and sensitivities were obtained. Both leads were separately secured to the underlying muscle. The pocket was irrigated with antibiotic solution. I obtained the threshold and also did 10 V pacing for both the leads. BALES and WALT projections were used to visualize the location. Excellent location and excellent thresholds were obtained. The leads were then connected to the pulse generator and the pocket was closed in 2 layers. Excellent hemostasis was achieved. Patient tolerated the procedure well without complication. 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 Location is in the left infraclavicular location. ATRIAL LEAD INFORMATION: [employer] model Tendril STS 2088 TC/52, serial #[id number]. VENTRICULAR LEAD: [employer] model Tendril STS 2088 TC/58 cm, serial #[id number]. Location is in the mid septum. Atrial threshold was 1.25 V at 0.4 milliseconds. A lead sensing was 4.3 mV. Lead impedance was 400 ohms. The ventricular threshold was 0.5 V at 0.4 mV. R-waves are more than 12.0. Lead impedance was 590 ohms. The pacemaker was set at a backup rate of 50, a high rate of 110, AV paced delay of 200 milliseconds, sensed delay of 180 milliseconds. Pacemaker was set at DDD mode. The patient tolerated procedure well without complications. She will have a chest x- ray today and this will be repeated tomorrow as well. MMODL / IJN: [id number] /
[2018-03-28] MEDS: HYDROCHLOROTHIAZIDE 12.5 MG CAP PO SCH (12:41)
[2018-03-28] MEDS: VIT A,C & E-LUTEIN-MINERALS 1 EACH TAB PO SCH (12:44)
[2018-03-28] MEDS: ASCORBIC ACID 500 MG TAB PO SCH (12:44)
[2018-03-28] MEDS: B COMPLEX-VIT C-VIT E-ZINC 1 EACH TAB PO SCH (12:44)
[2018-03-28] MEDS: AZELASTINE 137MCG/SPRAY EA NOSTRIL PRN (12:50)
--- NOTE | 2018-03-28 15:01 | XR ---
EXAMINATION TYPE: XR chest 1V portable DATE OF EXAM: 03/28/2018 HISTORY: Shortness of breath. COMPARISON: 03/27/2018 TECHNIQUE: Single view of the chest is submitted. FINDINGS: Dual-lead pacer is noted to be in place. Pulmonary venous congestion without overt failure. No evidence for pneumothorax. Demonstrated are scattered senescent parenchymal change. There is no evidence for focal infiltrate. The heart is stable. Hilar and mediastinal structures are within normal limits. Degenerative changes are seen of the dorsal spine. IMPRESSION: 1. Chronic changes without evidence for acute pulmonary disease.
[2018-03-28] MEDS: CLINDAMYCIN 600 MG in DEXTROSE 5% IN WATER 50 ML IVPB SCH ×4 (16:06→23:44)
--- NOTE | 2018-03-28 19:56 | PN ---
PROGRESS NOTE DATE OF SERVICE: 03/28/2018 PRESENTING COMPLAINT: Heart block. INTERVAL HISTORY: This patient was admitted with a multitude of problems, including second-degree heart block causing pulmonary edema, severe hyperkalemia. This morning patient did get a pacemaker. Lying in bed, tired; slightly short of breath. This was done by Dr. Adwoa Broderick. REVIEW OF SYSTEMS: Done for constitutional, cardiovascular, GI, pulmonary; relevant findings as above. CURRENT MEDICATIONS: Reviewed. They include IV clindamycin, bicarbonate, IV fluids per Dr. Adwoa Broderick. PHYSICAL EXAMINATION: Temperature 97.1, pulse 72, respiration 18, blood pressure 184/72, pulse ox 95% on 3 L. GENERAL APPEARANCE: Lying in bed, tired-appearing. EYES: Pupils equal. Conjunctivae normal. HEENT: External appearance of nose and ears normal. Oral cavity normal. NECK: JVD unable to assess. Mass not palpable. RESPIRATORY: Effort increased. LUNGS: Decreased breath sounds. CARDIOVASCULAR: Heart sounds irregular. Minimal edema. ABDOMEN: Soft, non-tender. Liver and spleen not palpable. PSYCHIATRY: Alert and oriented x3. Mood and affect normal. INVESTIGATIONS: Potassium 4.9, bicarb 21, BUN 51, creatinine 1.29. TSH 9.2. ASSESSMENT: 1. Second-degree heart block with 2:1 conduction, symptomatic. Patient is now status post permanent pacemaker. 2. Acute pulmonary edema, probably from heart block. 3. Severe hyperkalemia. Patient was on Diovan, corrected. 4. Metabolic acidosis from renal failure, improving. 5. Obesity; body mass index 31.7. 6. Essential hypertension, uncontrolled. 7. Hyperlipidemia. 8. Gastroesophageal reflux disease. 9. Primary osteoarthritis in multiple joints, bilateral. 10.Chronic urinary stress incontinence. 11.Chronic insomnia, idiopathic. 12.H thyroidism. 13.CODE STATUS: DO NOT RESUSCITATE. 14.Moderate secondary pulmonary hypertension. PLAN: Will keep the patient on sodium bicarb, add amlodipine for better blood pressure control, go from there. amlodipine will add beta aline for blood pressure control. MMODL / IJN: [id number] /
[2018-03-29] MEDS: SODIUM CHLORIDE 0.9% 1,000 ML IV SCH ×4 (06:41→20:58)
[2018-03-29] MEDS: LEVOTHYROXINE 50 MCG TAB PO SCH (06:41)
[2018-03-29] MEDS: FLUTICASONE 50MCG/SPRAY NASAL 16GM EA NOSTRIL SCH ×2 (06:42→09:45)
--- NOTE | 2018-03-29 08:27 | XR ---
EXAMINATION TYPE: XR chest 2V DATE OF EXAM: 03/29/2018 COMPARISON: 03/28/2018 INDICATION: Lead placement check TECHNIQUE: Frontal and lateral views of the chest are obtained. FINDINGS: The heart size is normal. The pulmonary vasculature is upper limits for normal.. No suspicious focal consolidations are evident. Pacemaker overlies left chest. No pneumothorax is pr esent. IMPRESSION: 1. Vascularity is at the upper limits of normal. 2. No acute pulmonary process.
[2018-03-29] MEDS: AZELASTINE 137MCG/SPRAY EA NOSTRIL PRN (09:46)
[2018-03-29] MEDS: HYDROCHLOROTHIAZIDE 12.5 MG CAP PO SCH (09:46)
[2018-03-29] MEDS: VIT A,C & E-LUTEIN-MINERALS 1 EACH TAB PO SCH (09:46)
[2018-03-29] MEDS: hydrALAZINE HCL 25 MG TAB PO SCH ×3 (09:46→20:57)
[2018-03-29] MEDS: ATORVASTATIN 10 MG TAB PO SCH (09:46)
[2018-03-29] MEDS: ASPIRIN 81 MG PO SCH (09:46)
[2018-03-29] MEDS: SODIUM BICARBONATE TAB 650 MG TAB PO SCH ×3 (09:46→20:58)
[2018-03-29] MEDS: FAMOTIDINE 20 MG TAB PO SCH (09:47)
[2018-03-29] MEDS: ASCORBIC ACID 500 MG TAB PO SCH (09:47)
[2018-03-29] MEDS: B COMPLEX-VIT C-VIT E-ZINC 1 EACH TAB PO SCH (09:47)
[2018-03-29] MEDS: NYSTATIN 100,000 UNIT/GM POWD 15 GM TOPICAL SCH ×2 (09:47→20:57)
[2018-03-29] MEDS: NYSTATIN 100,000UNIT/GM CREAM 30 GM TUBE TOPICAL SCH ×2 (09:48→20:57)
[2018-03-29] MEDS: CLINDAMYCIN 600 MG in DEXTROSE 5% IN WATER 50 ML IVPB SCH ×4 (09:56→16:13)
--- NOTE | 2018-03-29 11:21 | P.PN ---
Subjective Progress Note Date: 03/29/18 Principal diagnosis: Second-degree type II heart block This is an 87-year-old female who presented to the hospital primarily with symptoms of weakness and lack of energy EKG showed a second-degree heart block type II. Patient was found to be hyperkalemic with a potassium of 5.9, her TSH level was also elevated at 9.2 with a free T4 of 1.0. Patient was seen in consultation by Dr. Halima Broderick and recommended to undergo implantation of a permanent pacemaker. This was performed yesterday, device was interrogated this morning and is functioning appropriately. Chest x-ray was performed this morning which did not reveal any evidence of a pneumothorax. Patient was seen and examined this morning, blood pressure 176/70 with a heart rate in the 70s, 94% on 3 L of oxygen. We will start the patient on Norvasc 10 mg daily today. Patient is been encouraged to be up in the chair today. We'll plan for possible discharge home tomorrow morning if stable. Objective - Vital Signs Vital signs: Vital Signs Temp 97.4 F L 03/29/18 08:00 Pulse 76 03/29/18 08:54 Resp 19 03/29/18 08:00 BP 176/75 03/29/18 08:54 Pulse Ox 94 L 03/29/18 08:54 Intake & Output 03/28/18 03/29/18 03/29/18 18:59 06:59 18:59 Intake Total 846 50 Balance 846 50 Weight 83 kg Intake: IV 156 Intake, IV Titration 450 50 Amount Clindamycin 600 mg In 100 Dextrose 5% in Water 50 ml @ 100 mls/hr IVPB Q8H [facility] Rx#:[id number] Sodium Chloride 0.9% 1, 350 50 000 ml @ 50 mls/hr IV . Q20H [facility] Rx#:[id number] Oral 240 Other: Voiding Method Bedpan # Voids 1 0 - Exam PHYSICAL EXAMINATION: GENERAL: 87-year-old female in no. Distress at the time of my examination. HEENT: Head is atraumatic, normocephalic. Pupils equal, round. Sclera anicteric. Conjunctiva are clear. Mucous membranes of the mouth are moist. Neck is supple. There is no elevated jugular venous pressure.] bruit is heard. HEART EXAMINATION: Heart S1 S2 1 systolic murmur is heard. CHEST EXAMINATION: Lungs are clear to auscultation and precussion. No chest wall tenderness is noted on palpation or with deep breathing. Site of pacemaker implantation, the dressing is dry and intact. ABDOMEN: Soft, nontender. Bowel sounds are heard. No organomegaly noted. EXTREMITIES: 2+ peripheral pulses with no evidence of peripheral edema and no calf tenderness noted. NEUROLOGIC patient is awake, alert and oriented -3. . - Labs CBC & Chem 7: 03/26/18 19:36 03/28/18 05:55 Labs: Microbiology - Last 24 Hours (Table) 03/26/18 21:19 Blood Culture - Preliminary Blood No Growth after 48 hours 03/26/18 19:51 Urine Culture - Final Urine,Catheterized Enterobacter aerogenes Assessment and Plan Plan: Assessment and plan #1 status post implantation of permanent pacemaker for second degree type II heart block. #2 hyperkalemia, resolved #3 hypothyroidism, patient was started on Synthroid #4 hypertension, we will add Norvasc 10 mg to her medication regime today for more optimal blood pressure control. Plan Pacemaker was interrogated today and is functioning appropriately. Chest x-ray does not show any evidence of a pneumothorax. We will add Norvasc 10 mg to her medication regime. Have her up in the chair today, plan for possible discharge home in 24 hours if stable. DNP note has been reviewed, I agree with a documented findings and plan of care. Patient was seen and examined.
[2018-03-29] MEDS: amLODIPine 10 MG TAB PO SCH (12:34)
[2018-03-29 16:53] VITALS: RESP 18
--- NOTE | 2018-03-29 18:00 | PN ---
PROGRESS NOTE DATE OF SERVICE: 03/29/2018. PRESENTING COMPLAINT: Heart block. INTERVAL HISTORY: Patient admitted with second-degree symptomatic heart block with pulmonary edema, status post pacemaker. Feeling better. Has been up to the bathroom. Family at the bedside. Did tolerate some diet. Feels a bit tired. REVIEW OF SYSTEMS: Done for constitutional, cardiovascular, GI, pulmonary; relevant findings as above. CURRENT MEDICATIONS: Reviewed. Norvasc was added today. PHYSICAL EXAMINATION: Temperature 97.4, pulse 78, respirations 17, blood pressure 189/81, pulse ox 95% on 3 L. GENERAL: Lying in bed, tired appearing. EYES: Pupils equal. Conjunctivae normal. HEENT: External appearance of nose and ears normal. Oral cavity normal. NECK: JVD unable to assess. Mass not palpable. Respiratory effort increased. LUNGS: Decreased breath sounds. CARDIOVASCULAR: Heart sounds regular. No edema. ABDOMEN: Soft, nontender. Liver and spleen not palpable. PSYCHIATRY: Alert, oriented x3. Mood and affect normal. EXTREMITIES: Left arm in a sling. INVESTIGATIONS: Glucose 106. ASSESSMENT: 1. Second-degree heart block, with 2:1 condition, symptomatic, status post permanent pacemaker. 2. Acute pulmonary edema from heart block, improved. 3. Severe hyperkalemia. The patient was on Diovan. Corrected. 4. Metabolic acidosis from renal failure, improving. 5. Obesity; BMI 31.7. 6. Essential hypertension, uncontrolled. 7. Hyperlipidemia. 8. Gastroesophageal reflux disease. 9. Primary osteoarthritis of multiple joints bilateral. 10.Chronic urinary stress incontinence. 11.Chronic insomnia, idiopathic. 12.Hypothyroidism, new diagnosis. 13.Moderate secondary pulmonary hypertension. 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 15.CODE STATUS: DO NOT RESUSCITATE. PLAN: Amlodipine was added. Care was discussed with the family at the bedside. Repeat labs in the morning. MMODL / IJN: [id number] /
[2018-03-30] MEDS: LEVOTHYROXINE 50 MCG TAB PO SCH (06:17)
[2018-03-30 06:48] LABS: Potassium 3.8 mmol/L (3.5-5.1)
[2018-03-30] MEDS: ASPIRIN 81 MG PO SCH (08:21)
[2018-03-30] MEDS: B COMPLEX-VIT C-VIT E-ZINC 1 EACH TAB PO SCH (08:21)
[2018-03-30] MEDS: hydrALAZINE HCL 25 MG TAB PO SCH (08:21)
[2018-03-30] MEDS: SODIUM BICARBONATE TAB 650 MG TAB PO SCH (08:21)
[2018-03-30] MEDS: VIT A,C & E-LUTEIN-MINERALS 1 EACH TAB PO SCH (08:21)
[2018-03-30] MEDS: ASCORBIC ACID 500 MG TAB PO SCH (08:21)
[2018-03-30] MEDS: NYSTATIN 100,000 UNIT/GM POWD 15 GM TOPICAL SCH (08:22)
[2018-03-30] MEDS: amLODIPine 10 MG TAB PO SCH (08:22)
[2018-03-30] MEDS: ATORVASTATIN 10 MG TAB PO SCH (08:22)
[2018-03-30] MEDS: FAMOTIDINE 20 MG TAB PO SCH (08:22)
[2018-03-30] MEDS: HYDROCHLOROTHIAZIDE 12.5 MG CAP PO SCH (08:23)
[2018-03-30] MEDS: NYSTATIN 100,000UNIT/GM CREAM 30 GM TUBE TOPICAL SCH (08:23)
[2018-03-30 09:23] VITALS: TEMP 98
[2018-03-30] MEDS: SODIUM CHLORIDE 0.9% 1,000 ML IV SCH (10:45)
[2018-03-30 11:10] VITALS: BP 124/60; PULSE 73
--- NOTE | 2018-03-30 11:20 | P.PN ---
Subjective Progress Note Date: 03/30/18 Principal diagnosis: Second-degree type II heart block This is an 87-year-old female who presented to the hospital primarily with symptoms of weakness and lack of energy EKG showed a second-degree heart block type II. Patient was found to be hyperkalemic with a potassium of 5.9, her TSH level was also elevated at 9.2 with a free T4 of 1.0. Patient was seen in consultation by Dr. Halima Broderick and recommended to undergo implantation of a permanent pacemaker. This was performed yesterday, device was interrogated this morning and is functioning appropriately. Chest x-ray was performed this morning which did not reveal any evidence of a pneumothorax. Patient was seen and examined this morning, blood pressure 176/70 with a heart rate in the 70s, 94% on 3 L of oxygen. We will start the patient on Norvasc 10 mg daily today. Patient is been encouraged to be up in the chair today. We'll plan for possible discharge home tomorrow morning if stable. 03/30/2018 Patient was seen and examined this morning, complaints of feeling mildly weak, she has been encouraged to be up in the chair today. Hemodynamically she is stable. Objective - Vital Signs Vital signs: Vital Signs Temp 98.0 F 03/30/18 11:08 Pulse 73 03/30/18 11:08 Resp 18 03/30/18 11:08 BP 124/60 03/30/18 11:08 Pulse Ox 92 L 03/30/18 11:08 Intake & Output 03/29/18 03/30/18 03/30/18 18:59 06:59 18:59 Intake Total 923 118 400 Balance 923 118 400 Weight 82.5 kg Intake: Intake, IV Titration 450 400 Amount Clindamycin 600 mg In 50 Dextrose 5% in Water 50 ml @ 100 mls/hr IVPB Q8H [facility] Rx#:[id number] Sodium Chloride 0.9% 1, 400 400 000 ml @ 50 mls/hr IV . Q20H [facility] Rx#:[id number] Oral 473 118 Other: # Voids 1 - Exam PHYSICAL EXAMINATION: GENERAL: 87-year-old female in no. Distress at the time of my examination. HEENT: Head is atraumatic, normocephalic. Pupils equal, round. Sclera anicteric. Conjunctiva are clear. Mucous membranes of the mouth are moist. Neck is supple. There is no elevated jugular venous pressure.] bruit is heard. HEART EXAMINATION: Heart S1 S2 1 systolic murmur is heard. CHEST EXAMINATION: Lungs are clear to auscultation and precussion. No chest wall tenderness is noted on palpation or with deep breathing. Site of pacemaker implantation, the dressing is dry and intact. ABDOMEN: Soft, nontender. Bowel sounds are heard. No organomegaly noted. EXTREMITIES: 2+ peripheral pulses with no evidence of peripheral edema and no calf tenderness noted. NEUROLOGIC patient is awake, alert and oriented -3. . - Labs CBC & Chem 7: 03/26/18 19:36 03/30/18 06:07 Labs: Abnormal Lab Results - Last 24 Hours (Table) 03/30/18 Range/Units 06:07 Carbon Dioxide 19 L (22-30) mmol/L BUN 43 H (7-17) mg/dL Creatinine 1.10 H (0.52-1.04) mg/dL Glucose 105 H (74-99) mg/dL Calcium 8.0 L (8.4-10.2) mg/dL Microbiology - Last 24 Hours (Table) 03/26/18 21:19 Blood Culture - Preliminary Blood No Growth after 72 hours Assessment and Plan Plan: Assessment and plan #1 status post implantation of permanent pacemaker for second degree type II heart block. #2 hyperkalemia, resolved #3 hypothyroidism, patient was started on Synthroid #4 hypertension, we will add Norvasc 10 mg to her medication regime today for more optimal blood pressure control. Plan Cardiology's perspective, patient may be able to be discharged once cleared by primary. We will make her a follow-up appointment in the device clinic post discharge. Follow up appointment with Dr. Broderick in the office. DNP note has been reviewed, I agree with a documented findings and plan of care. Patient was seen and examined.
--- NOTE | 2018-03-30 20:37 | DS ---
DISCHARGE SUMMARY DATE OF ADMISSION: 03/26/2018. DATE OF DISCHARGE: 03/30/2018 FINAL DIAGNOSES: 1. Second-degree AV block 2:1 symptomatic causing acute pulmonary edema. 2. Severe hyperkalemia. The patient's Diovan was discontinued. 3. Metabolic acidosis from renal failure. 4. Obesity; BMI 31.7. 5. Essential hypertension, uncontrolled. 6. Hyperlipidemia. 7. Gastroesophageal reflux disease. 8. Primary osteoarthritis of multiple joints bilateral. 9. Chronic urinary stress incontinence. 10.Chronic insomnia, idiopathic. 11.Hypothyroidism, new diagnosis. 12.Moderate secondary pulmonary hypertension. 13.Possible chronic kidney disease stage 3 from nephrosclerosis. 14.CODE STATUS: DO NOT RESUSCITATE. PROCEDURE: Permanent pacemaker placement. CONSULTATION: Dr. Adwoa Broderick from Cardiology. HOSPITAL COURSE: This patient presented with weak tired, found to be 2:1 block and pulmonary edema. Immediately patient did get a pacemaker. The patient hyperkalemia that was corrected. The patient's ARB was discontinued. Blood pressure medications adjusted, doing better. EXAMINATION: LUNGS: Slightly decreased breath sounds. Left arm in a sling. PSYCH: AO x3. The patient's BUN and creatinine today were 43/1.10. The patient also was found to be hypothyroid; hence, put on Synthroid. DISCHARGE MEDICATIONS: 1. Vitamin C 500 mg p.o. daily. 2. Aspirin 81 mg p.o. daily. 3. Astelin 1 spray each nostril daily p.r.n. 4. Celebrex 200 mg p.o. daily. 5. Lomotil 1 tablet p.o. daily p.r.n. 6. Flonase 1 spray each nostril daily. 7. Centrum Silver 1 tablet p.o. daily. 8. Zantac 300 mg p.o. daily. 9. Crestor 5 mg p.o. daily. 10.Vitamin D3 2000 units p.o. daily. 11.Prolia 60 mg subcu every 180 days. 12.Voltaren gel 2 g topical b.i.d. 13.[place] 10 one tablet t.i.d. p.r.n. 14.Nystatin-triamcinolone 1 application topical b.i.d. 15.Triamcinolone 1 application topical b.i.d. p.r.n. 16.Vitamin B complex 1 capsule p.o. daily. 17.Synthroid 50 mcg p.o. daily, new medication. 18.Sodium bicarb 325 p.o. b.i.d., new medication. 19.Norvasc 10 mg p.o. daily, new. 20.Hydralazine 25 mg p.o. t.i.d., new. 21.The patient's valsartan and hydrochlorothiazide was discontinued. FOLLOWUP: With [facility] on 04/03/2018, Dr. Hutson on 04/05/2018 and [facility] visiting nurses will be following up. DISCUSSION AND DISCHARGE PLANNING: More than 35 minutes. MMODL / IJN: [id number] /
== END 2018-03-30 14:30 | disposition home health service (06) | DRG 242 ==
LOC: EC 19:19 → 6SEL 21:19
PROVIDERS: ADMIT Hospitalist; ATTEND Hospitalist
PROC: 02H63JZ Insertion of Pacemaker Lead into Right Atrium, Percutaneous Approach (ICD-10-PCS; 2018-03-28)
PROC: 02HK3JZ Insertion of Pacemaker Lead into Right Ventricle, Percutaneous Approach (ICD-10-PCS; 2018-03-28)
PROC: 5A1213Z Performance of Cardiac Pacing, Intermittent (ICD-10-PCS; 2018-03-28)
PROC: 0JH606Z Insertion of Pacemaker, Dual Chamber into Chest Subcutaneous Tissue and Fascia, Open Approach (ICD-10-PCS; principal; 2018-03-28 09:15)
DX: I44.1 Atrioventricular block, second degree (principal); I50.33 Acute on chronic diastolic (congestive) heart failure; E87.2 Acidosis; I13.0 Hypertensive heart and chronic kidney disease with heart failure and stage 1 through stage 4 chronic kidney disease, or unspecified chronic kidney disease; N17.9 Acute kidney failure, unspecified; E87.5 Hyperkalemia; I27.29 Other secondary pulmonary hypertension; E86.0 Dehydration; N18.3 Chronic kidney disease, stage 3 (moderate); I44.7 Left bundle-branch block, unspecified; Z66 Do not resuscitate; I16.0 Hypertensive urgency; F51.01 Primary insomnia; E78.5 Hyperlipidemia, unspecified; K21.9 Gastro-esophageal reflux disease without esophagitis; M19.91 Primary osteoarthritis, unspecified site; N39.3 Stress incontinence (female) (male); E03.9 Hypothyroidism, unspecified; E66.9 Obesity, unspecified; Z68.31 Body mass index [BMI] 31.0-31.9, adult; Z79.82 Long term (current) use of aspirin; Z79.51 Long term (current) use of inhaled steroids; Z79.899 Other long term (current) drug therapy; Z96.651 Presence of right artificial knee joint; Z90.710 Acquired absence of both cervix and uterus; Z98.49 Cataract extraction status, unspecified eye; Z88.0 Allergy status to penicillin; Z88.8 Allergy status to other drugs, medicaments and biological substances; Z91.048 Other nonmedicinal substance allergy status
CPT/HCPCS: 33208; 36415; 71045; 71046; 80048; 80053; 80061; 81001; 82550; 82553; 83605; 83735; 83880; 84100; 84439; 84443; 84484; 85025; 85610; 85730; 87040; 87077; 87086; 87186; 93005; 93306; 96361; 96374; 96375; 96376; 99291

== ENCOUNTER → 2018-04-08 | Outpatient (CLI) | payer MEDICARE, OTHER ==
[2018-04-08 15:17] LABS: Calcium 9.8 mg/dL (8.4-10.2); Potassium 4.9 mmol/L (3.5-5.1)
== END | disposition home or self-care (01) ==
LOC: LABWHC1 14:00
PROVIDERS: ATTEND Internal Medicine Interventional Cardiology
DX: I10 Essential (primary) hypertension (principal)
CPT/HCPCS: 36415; 80048

== ENCOUNTER → 2018-05-13 | Outpatient (CLI) | payer MEDICARE, OTHER ==
--- NOTE | 2018-05-15 11:05 | MM ---
Reason for exam: screening (asymptomatic). Last mammogram was performed 1 year and 1 month ago. History: Patient is postmenopausal and has history of endometrial cancer at age 71. Family history of breast cancer in maternal aunt at age 70. Benign stereotactic core biopsy of the left breast, March 31, 2005. 2 excisional biopsies of the left breast. 4 excisional biopsies of the right breast. Physical Findings: A clinical breast exam by your physician is recommended on an annual basis and results should be correlated with mammographic findings. MG 3D Screening Mammo W/Cad Bilateral CC and MLO view(s) were taken. Prior study comparison: March 30, 2017, bilateral MG 3d screening mammo w/cad. March 29, 2016, bilateral MG 3d screening mammo w/cad. The breast tissue is heterogeneously dense. This may lower the sensitivity of mammography. No suspicious abnormality. Post biopsy change on the left breast. No significant changes when compared with prior studies. ASSESSMENT: Benign, BI-RAD 2 RECOMMENDATION: Routine screening mammogram of both breasts in 1 year.
== END | disposition home or self-care (01) ==
LOC: RADMAMWWP 13:23
PROVIDERS: ATTEND Obstetrics & Gynecology
DX: Z12.31 Encounter for screening mammogram for malignant neoplasm of breast (principal)
CPT/HCPCS: 77063; 77067

== ENCOUNTER → 2018-08-29 | Outpatient (CLI) | payer MEDICARE, OTHER ==
[2018-08-29 09:34] VITALS: BP 134/72; PULSE 61; RESP 16; TEMP 97.6
== END ==
LOC: PROCWHC3 08:48
PROVIDERS: ATTEND Family Medicine
DX: M81.0 Age-related osteoporosis without current pathological fracture (principal)
CPT/HCPCS: 96372; J0897

== ENCOUNTER → 2019-03-19 | Outpatient (CLI) | payer MEDICARE, OTHER ==
[~2019-03-19] MED LIST changes: +DENOSUMAB 60 MG/ML 1 ML SYRINGE SQ NR; -DENOSUMAB 60 MG/ML 1 ML SYRINGE SQ ONE
[2019-03-19 10:11] VITALS: BP 165/83; PULSE 61; RESP 16; TEMP 97.8
== END ==
LOC: PROCWHC3 09:31
PROVIDERS: ATTEND Family Medicine
DX: M81.0 Age-related osteoporosis without current pathological fracture (principal)
CPT/HCPCS: 96372; J0897

== ENCOUNTER → 2019-05-14 | Outpatient (CLI) | payer MEDICARE ==
--- NOTE | 2019-05-14 13:34 | MM ---
Reason for exam: screening (asymptomatic). Last mammogram was performed 1 year ago. History: Patient is postmenopausal and has history of endometrial cancer at age 71. Family history of breast cancer in maternal aunt at age 70. Benign stereotactic core biopsy of the left breast, March 31, 2005. 2 excisional biopsies of the left breast. 4 excisional biopsies of the right breast. Physical Findings: A clinical breast exam by your physician is recommended on an annual basis and results should be correlated with mammographic findings. MG 3D Screening Mammo W/Cad Bilateral CC and MLO view(s) were taken. Prior study comparison: May 13, 2018, bilateral MG 3d screening mammo w/cad. March 30, 2017, bilateral MG 3d screening mammo w/cad. The breast tissue is heterogeneously dense. This may lower the sensitivity of mammography. There are benign appearing round, linear, dystrophic calcifications bilaterally. Previous mammotome biopsy in the left breast. There is no discrete abnormality. ASSESSMENT: Benign, BI-RAD 2 RECOMMENDATION: Routine screening mammogram of both breasts in 1 year.
== END | disposition home or self-care (01) ==
LOC: RADMAMWWP 08:49
PROVIDERS: ATTEND Obstetrics & Gynecology
DX: Z12.31 Encounter for screening mammogram for malignant neoplasm of breast (principal)
CPT/HCPCS: 77063; 77067

== ENCOUNTER 2019-09-21 14:00 | Outpatient (CLI) | payer MEDICARE ==
[2019-09-21 14:21] VITALS: BP 117/75; PULSE 58; RESP 16; TEMP 97.3
== END 2019-09-21 15:00 | disposition home or self-care (01) ==
LOC: PROCWHC3 14:00
PROVIDERS: ATTEND Family Medicine
DX: M81.0 Age-related osteoporosis without current pathological fracture (principal)
CPT/HCPCS: 96372; J0897